=== PATIENT | male | born 1940 | race Caucasian/White ===

== ENCOUNTER → 2017-10-28 | Outpatient (CLI) | payer MEDICARE ==
[2017-10-28 11:06] LABS: BASO % 0.4 % (0.0-1.0); EOS # 0.1 10^3/uL (0.0-0.50); EOS % 1.7 % (0.0-3.0); HEMATOCRIT 31.8 % (42.0-52.0); HEMOGLOBIN 9.7 g/dl (13.5-17.5); IMMATURE GRANULOCYTE % 0.6 % (0-3.0); LYMPH # 1.3 10^3/uL (1.5-4.5); LYMPH % 18.3 % (24.0-44.0); MEAN CORPUSCULAR HEMOGLOBIN 27.7 pg (27.0-33.0); MEAN CORPUSCULAR HGB CONC 30.5 g/dl (32.0-36.5); MEAN CORPUSCULAR VOLUME 90.9 fl (80.0-96.0); MONO # 0.7 10^3/uL (0.0-0.8); MONO % 9.6 % (0.0-5.0); NEUTROPHILS # 4.8 10^3/uL (1.8-7.7); NEUTROPHILS % 69.4 % (36.0-66.0); PLATELET COUNT, AUTOMATED 243 10^3/uL (150-450); RED CELL DISTRIBUTION WIDTH 15.2 % (11.5-14.5); WHITE BLOOD COUNT 6.9 10^3/uL (4.0-10.0)
[2017-10-28 11:42] LABS: ALBUMIN 2.7 GM/DL (3.2-5.2); ALBUMIN/GLOBULIN RATIO 0.77 (1.00-1.93); ALKALINE PHOSPHATASE 182 U/L (45-117); ALT/SGPT 10 U/L (12-78); ANION GAP 1 MEQ/L (8-16); AST/SGOT 16 U/L (7-37); BILIRUBIN,TOTAL 0.8 MG/DL (0.2-1.0); BLOOD UREA NITROGEN 18 MG/DL (7-18); CALCIUM LEVEL 8.3 MG/DL (8.8-10.2); CARBON DIOXIDE LEVEL 35 MEQ/L (21-32); CHLORIDE LEVEL 107 MEQ/L (98-107); CREATININE FOR GFR 0.56 MG/DL (0.70-1.30); FREE T4 0.99 NG/DL (0.76-1.46); GLOMERULAR FILTRATION RATE > 60.0 (>42); GLUCOSE, FASTING 104 MG/DL (70-100); POTASSIUM SERUM 4.3 MEQ/L (3.5-5.1); SODIUM LEVEL 143 MEQ/L (136-145); THYROID STIMULATING HORMONE 0.787 uIU/ML (0.358-3.740); TOTAL PROTEIN 6.2 GM/DL (6.4-8.2)
== END ==
LOC: M LAB 10:27
DX: R19.7 Diarrhea, unspecified (principal)
CPT/HCPCS: 84443

== ENCOUNTER → 2017-11-21 | Outpatient (CLI) | payer MEDICARE ==
[2017-11-21 13:52] LABS: BASO # 0.1 10^3/uL (0.0-0.2); BASO % 1.1 % (0.0-1.0); EOS # 0.1 10^3/uL (0.0-0.50); EOS % 2.5 % (0.0-3.0); HEMATOCRIT 34.2 % (42.0-52.0); HEMOGLOBIN 10.3 g/dl (13.5-17.5); IMMATURE GRANULOCYTE % 0.4 % (0-3.0); LYMPH # 1.2 10^3/uL (1.5-4.5); LYMPH % 21.9 % (24.0-44.0); MEAN CORPUSCULAR HGB CONC 30.1 g/dl (32.0-36.5); MEAN CORPUSCULAR VOLUME 89.5 fl (80.0-96.0); MONO # 0.6 10^3/uL (0.0-0.8); MONO % 11.2 % (0.0-5.0); NEUTROPHILS # 3.3 10^3/uL (1.8-7.7); NEUTROPHILS % 62.9 % (36.0-66.0); PLATELET COUNT, AUTOMATED 241 10^3/uL (150-450); RED BLOOD COUNT 3.82 10^6/uL (4.30-6.10); RED CELL DISTRIBUTION WIDTH 16.4 % (11.5-14.5); WHITE BLOOD COUNT 5.3 10^3/uL (4.0-10.0)
[2017-11-21 14:10] LABS: ALBUMIN 3.1 GM/DL (3.2-5.2); ALBUMIN/GLOBULIN RATIO 0.79 (1.00-1.93); ALKALINE PHOSPHATASE 181 U/L (45-117); ALT/SGPT 7 U/L (12-78); ANION GAP 1 MEQ/L (8-16); AST/SGOT 13 U/L (7-37); BILIRUBIN,TOTAL 1.1 MG/DL (0.2-1.0); BLOOD UREA NITROGEN 20 MG/DL (7-18); CARBON DIOXIDE LEVEL 35 MEQ/L (21-32); CHLORIDE LEVEL 106 MEQ/L (98-107); CREATININE FOR GFR 0.68 MG/DL (0.70-1.30); GLOMERULAR FILTRATION RATE > 60.0 (>42); GLUCOSE, FASTING 93 MG/DL (70-100); POTASSIUM SERUM 4.5 MEQ/L (3.5-5.1); SODIUM LEVEL 142 MEQ/L (136-145)
== END ==
LOC: M LAB 13:07
DX: K59.00 Constipation, unspecified (principal)
CPT/HCPCS: 80053

== ENCOUNTER 2017-12-13 11:40 | Inpatient (IN) | payer MEDICARE ==
[2017-12-13 12:57] LABS: ANION GAP 6 MEQ/L (8-16); BLOOD UREA NITROGEN 21 MG/DL (7-18); CALCIUM LEVEL 9.4 MG/DL (8.8-10.2); CARBON DIOXIDE LEVEL 31 MEQ/L (21-32); CHLORIDE LEVEL 104 MEQ/L (98-107); CREATININE FOR GFR 0.72 MG/DL (0.70-1.30); GLOMERULAR FILTRATION RATE > 60.0 (>42); GLUCOSE, FASTING 98 MG/DL (70-100); POTASSIUM SERUM 4.1 MEQ/L (3.5-5.1); SODIUM LEVEL 141 MEQ/L (136-145)
[2017-12-13] MEDS ORDERED: ISOVUE-370 76% 100ML VIAL (Q9967) As Ordered (13:00)
[2017-12-13 13:02] LABS: BASO # 0.1 10^3/uL (0.0-0.2); EOS # 0.1 10^3/uL (0.0-0.50); EOS % 1.7 % (0.0-3.0); HEMATOCRIT 35.2 % (42.0-52.0); HEMOGLOBIN 10.8 g/dl (13.5-17.5); IMMATURE GRANULOCYTE % 0.2 % (0-3.0); LYMPH # 1.2 10^3/uL (1.5-4.5); LYMPH % 23.3 % (24.0-44.0); MEAN CORPUSCULAR HEMOGLOBIN 26.6 pg (27.0-33.0); MEAN CORPUSCULAR HGB CONC 30.7 g/dl (32.0-36.5); MEAN CORPUSCULAR VOLUME 86.7 fl (80.0-96.0); MONO # 0.6 10^3/uL (0.0-0.8); MONO % 11.5 % (0.0-5.0); NEUTROPHILS # 3.2 10^3/uL (1.8-7.7); NEUTROPHILS % 62.3 % (36.0-66.0); PLATELET COUNT, AUTOMATED 211 10^3/uL (150-450); RED BLOOD COUNT 4.06 10^6/uL (4.30-6.10); RED CELL DISTRIBUTION WIDTH 16.8 % (11.5-14.5); WHITE BLOOD COUNT 5.2 10^3/uL (4.0-10.0)
[2017-12-13 13:10] LABS: INR 1.04; PROTHROMBIN TIME 13.7 SECONDS (12.1-14.4)
[2017-12-13 13:11] LABS: PARTIAL THROMBOPLASTIN TIME 38.2 SECONDS (25.4-37.6)
[2017-12-13] MEDS: NS 1,000 ML IV (17:20)
[2017-12-13] MEDS: FERROUS SULFATE 325MG TAB PO (21:36)
[2017-12-13] MEDS: SINEMET 25-100 MG TAB PO (21:37)
[2017-12-13] MEDS: FUROSEMIDE 20 MG TAB PO (21:37)
[2017-12-13] MEDS: TERAZOSIN 1 MG CAP PO (21:37)
[2017-12-13] MEDS: MIRTAZAPINE 15 MG TAB PO (21:37)
[2017-12-14] MEDS: ACETAMINOPHEN TAB 650MG DOSE (2X325MG) PO (00:05)
[2017-12-14] MEDS: NS 1,000 ML IV ×2 (05:31→15:09)
[2017-12-14 06:08] LABS: BASO # 0.1 10^3/uL (0.0-0.2); BASO % 1.1 % (0.0-1.0); EOS # 0.2 10^3/uL (0.0-0.50); HEMATOCRIT 34.4 % (42.0-52.0); HEMOGLOBIN 10.5 g/dl (13.5-17.5); IMMATURE GRANULOCYTE % 0.2 % (0-3.0); LYMPH # 1.5 10^3/uL (1.5-4.5); MEAN CORPUSCULAR HEMOGLOBIN 26.5 pg (27.0-33.0); MEAN CORPUSCULAR HGB CONC 30.5 g/dl (32.0-36.5); MEAN CORPUSCULAR VOLUME 86.9 fl (80.0-96.0); MONO # 0.6 10^3/uL (0.0-0.8); MONO % 10.8 % (0.0-5.0); NEUTROPHILS # 3.1 10^3/uL (1.8-7.7); NEUTROPHILS % 56.9 % (36.0-66.0); PLATELET COUNT, AUTOMATED 179 10^3/uL (150-450); RED BLOOD COUNT 3.96 10^6/uL (4.30-6.10); RED CELL DISTRIBUTION WIDTH 16.8 % (11.5-14.5); WHITE BLOOD COUNT 5.4 10^3/uL (4.0-10.0)
[2017-12-14 06:33] LABS: ALBUMIN/GLOBULIN RATIO 0.83 (1.00-1.93); ALKALINE PHOSPHATASE 162 U/L (45-117); ALT/SGPT 9 U/L (12-78); ANION GAP 10 MEQ/L (8-16); AST/SGOT 15 U/L (7-37); BLOOD UREA NITROGEN 18 MG/DL (7-18); CALCIUM LEVEL 8.5 MG/DL (8.8-10.2); CARBON DIOXIDE LEVEL 29 MEQ/L (21-32); CHLORIDE LEVEL 107 MEQ/L (98-107); CREATININE FOR GFR 0.69 MG/DL (0.70-1.30); GLOMERULAR FILTRATION RATE > 60.0 (>42); GLUCOSE, FASTING 55 MG/DL (70-100); POTASSIUM SERUM 3.6 MEQ/L (3.5-5.1); SODIUM LEVEL 146 MEQ/L (136-145); TOTAL PROTEIN 6.6 GM/DL (6.4-8.2)
[2017-12-14] MEDS: METOPROLOL SUCC (TopROL XL) 100MG *XL* TAB PO (08:33)
[2017-12-14] MEDS: SINEMET 25-100 MG TAB PO ×4 (08:33→20:29)
[2017-12-14] MEDS: FERROUS SULFATE 325MG TAB PO ×2 (08:33→20:30)
[2017-12-14] MEDS: sulfaSALAzine 500 MG TABEC PO (08:33)
[2017-12-14] MEDS: OMEPRAZOLE 20 MG CAP PO (08:33)
[2017-12-14] MEDS: MIRALAX *UNIT DOSE* 17GM PACKET PO (08:34)
[2017-12-14] MEDS: FUROSEMIDE 20 MG TAB PO (08:35)
[2017-12-14] MEDS: TERAZOSIN 1 MG CAP PO (20:29)
[2017-12-14] MEDS: MIRTAZAPINE 15 MG TAB PO (20:30)
[2017-12-15] MEDS: NS 1,000 ML IV ×2 (03:35→16:22)
[2017-12-15] MEDS: METOPROLOL SUCC (TopROL XL) 100MG *XL* TAB PO (08:51)
[2017-12-15] MEDS: sulfaSALAzine 500 MG TABEC PO (08:51)
[2017-12-15] MEDS: OMEPRAZOLE 20 MG CAP PO (08:51)
[2017-12-15] MEDS: MIRALAX *UNIT DOSE* 17GM PACKET PO (08:51)
[2017-12-15] MEDS: FERROUS SULFATE 325MG TAB PO ×2 (08:51→20:46)
[2017-12-15] MEDS: SINEMET 25-100 MG TAB PO ×4 (08:51→20:46)
[2017-12-15] MEDS: GLYCOPYRROLATE 2 MG PO ×2 (12:04→20:49)
[2017-12-15] MEDS: MIRTAZAPINE 15 MG TAB PO (20:48)
[2017-12-15] MEDS: TERAZOSIN 1 MG CAP PO (20:48)
[2017-12-16] MEDS: NS 1,000 ML IV (04:54)
[2017-12-16] MEDS: ceFAZolin SOD 1 GM in D5W MINI-BAG PLUS 50 ML IV (06:16)
[2017-12-16] MEDS ORDERED: LIDOCAINE 2% MDV 20 ML VIAL As Ordered (07:04)
[2017-12-16] MEDS ORDERED: PROPOFOL 200 MG/20 ML VIAL As Ordered (07:04)
[2017-12-16] MEDS: METOPROLOL SUCC (TopROL XL) 100MG *XL* TAB PO (09:00)
[2017-12-16 09:14] LABS: HEMOGLOBIN 10.5 g/dl (13.5-17.5); MEAN CORPUSCULAR HEMOGLOBIN 26.9 pg (27.0-33.0); MEAN CORPUSCULAR VOLUME 89.7 fl (80.0-96.0); PLATELET COUNT, AUTOMATED 181 10^3/uL (150-450); RED CELL DISTRIBUTION WIDTH 17.1 % (11.5-14.5); WHITE BLOOD COUNT 5.2 10^3/uL (4.0-10.0)
[2017-12-16] MEDS: GLYCOPYRROLATE 2 MG PO ×2 (09:49→20:31)
[2017-12-16] MEDS: sulfaSALAzine 500 MG TABEC PO (09:49)
[2017-12-16] MEDS: FERROUS SULFATE 325MG TAB PO ×2 (09:49→20:30)
[2017-12-16] MEDS: OMEPRAZOLE 20 MG CAP PO (09:49)
[2017-12-16] MEDS: SINEMET 25-100 MG TAB PO ×4 (09:49→20:30)
[2017-12-16] MEDS: MIRALAX *UNIT DOSE* 17GM PACKET PO (09:49)
[2017-12-16 10:11] LABS: ANION GAP 13 MEQ/L (8-16); BLOOD UREA NITROGEN 17 MG/DL (7-18); CALCIUM LEVEL 7.9 MG/DL (8.8-10.2); CARBON DIOXIDE LEVEL 21 MEQ/L (21-32); CHLORIDE LEVEL 113 MEQ/L (98-107); CREATININE FOR GFR 0.67 MG/DL (0.70-1.30); GLOMERULAR FILTRATION RATE > 60.0 (>42); GLUCOSE, FASTING 50 MG/DL (70-100); POTASSIUM SERUM 4.1 MEQ/L (3.5-5.1); SODIUM LEVEL 147 MEQ/L (136-145)
[2017-12-16] MEDS: ACETAMINOPHEN TAB 650MG DOSE (2X325MG) PO ×2 (14:12→20:31)
[2017-12-16] MEDS: TERAZOSIN 1 MG CAP PO (20:30)
[2017-12-16] MEDS: MIRTAZAPINE 15 MG TAB PO (20:30)
[2017-12-17 08:45] LABS: HEMOGLOBIN 10.2 g/dl (13.5-17.5); MEAN CORPUSCULAR HEMOGLOBIN 26.8 pg (27.0-33.0); MEAN CORPUSCULAR HGB CONC 30.9 g/dl (32.0-36.5); MEAN CORPUSCULAR VOLUME 86.8 fl (80.0-96.0); PLATELET COUNT, AUTOMATED 166 10^3/uL (150-450); RED CELL DISTRIBUTION WIDTH 17.3 % (11.5-14.5); WHITE BLOOD COUNT 6.9 10^3/uL (4.0-10.0)
[2017-12-17 09:01] LABS: ANION GAP 6 MEQ/L (8-16); BLOOD UREA NITROGEN 19 MG/DL (7-18); CALCIUM LEVEL 8.3 MG/DL (8.8-10.2); CARBON DIOXIDE LEVEL 29 MEQ/L (21-32); CHLORIDE LEVEL 113 MEQ/L (98-107); CREATININE FOR GFR 0.77 MG/DL (0.70-1.30); GLOMERULAR FILTRATION RATE > 60.0 (>42); GLUCOSE, FASTING 115 MG/DL (70-100); SODIUM LEVEL 148 MEQ/L (136-145)
[2017-12-17] MEDS: MIRALAX *UNIT DOSE* 17GM PACKET PO (09:56)
[2017-12-17] MEDS: OMEPRAZOLE 20 MG CAP PO (09:56)
[2017-12-17] MEDS: SINEMET 25-100 MG TAB PO ×2 (09:56→13:22)
[2017-12-17] MEDS: FERROUS SULFATE 325MG TAB PO (09:56)
[2017-12-17] MEDS: GLYCOPYRROLATE 2 MG PO (09:56)
[2017-12-17] MEDS: sulfaSALAzine 500 MG TABEC PO (09:56)
[2017-12-17] MEDS: METOPROLOL SUCC (TopROL XL) 100MG *XL* TAB PO (09:57)
== END 2017-12-17 14:23 | disposition home or self-care (01) | DRG 394 ==
LOC: M ED 11:40 → M ED INP 15:25 → M MSPAV 17:15
PROC: 0DH64UZ Insertion of Feeding Device into Stomach, Percutaneous Endoscopic Approach (ICD-10-PCS; principal; 2017-12-16 08:19)
PROC: 0DB98ZX Excision of Duodenum, Via Natural or Artificial Opening Endoscopic, Diagnostic (ICD-10-PCS; 2017-12-16 08:19)
DX: K94.23 Gastrostomy malfunction (principal); E46 Unspecified protein-calorie malnutrition; G20 Parkinson's disease; K21.9 Gastro-esophageal reflux disease without esophagitis; N40.0 Benign prostatic hyperplasia without lower urinary tract symptoms; K94.22 Gastrostomy infection; D50.9 Iron deficiency anemia, unspecified; I25.10 Atherosclerotic heart disease of native coronary artery without angina pectoris; I50.9 Heart failure, unspecified; G47.00 Insomnia, unspecified; R47.02 Dysphasia; Z79.899 Other long term (current) drug therapy; Z88.8 Allergy status to other drugs, medicaments and biological substances; Z88.5 Allergy status to narcotic agent; Z88.2 Allergy status to sulfonamides; I25.2 Old myocardial infarction; N28.1 Cyst of kidney, acquired; I48.91 Unspecified atrial fibrillation; Z88.6 Allergy status to analgesic agent; Z87.891 Personal history of nicotine dependence; Z95.0 Presence of cardiac pacemaker; M19.90 Unspecified osteoarthritis, unspecified site; L40.8 Other psoriasis; E11.9 Type 2 diabetes mellitus without complications; I11.0 Hypertensive heart disease with heart failure

== ENCOUNTER 2018-11-22 08:12 | Inpatient (IN) | payer MEDICARE ==
[~2018-11-22] VITALS: Ht 172.7 cm; Wt 70.5 kg
[~2018-11-22 08:12] MED LIST: ACITRETIN; BABY81CH; CARB25TA9 PO; FERR325T3 PO; FLOM0.4C39; FURO20TA2 PO; GLYC2TAB18 PO; IBUP400T; KEFL250C11 PO; LISI10TA4; MELOPOW; METO1TAB33 PO; MIRA3350 PO; MIRT1TAB15 PO; OMEP20TA9 PO; ROSI4TA; SULF500T2 PO; TERA2CAP3 PO; ZOCO80TA
[2018-11-22] MEDS ORDERED: ENOXAPARIN 40 MG/0.4 ML SYRINGE (J1650) SC SCH (09:00)
[2018-11-22] MEDS ORDERED: DOCUSATE SODIUM 100 MG CAP PO SCH (09:00)
[2018-11-22 10:10] VITALS: BP 139/68
[2018-11-22] MEDS ORDERED: MOM 30ML SUSPENSION UDC PO PRN (11:15)
[2018-11-22] MEDS ORDERED: IPRATROPIUM 0.5MG/ALBUTEROL 2.5MG INH SOL UD 3ML (DUONEB)(J7620) NEB PRN (11:15)
[2018-11-22] MEDS ORDERED: MAALOX 30 ML SUSP *UDC PO PRN (11:15)
[2018-11-22] MEDS ORDERED: VANCOMYCIN HCL 500 MG in D5W MINI-BAG PLUS 100 ML IV SCH (11:15)
[2018-11-22] MEDS ORDERED: ACETAMINOPHEN TAB 650MG DOSE (2X325MG) PO PRN (11:15)
--- NOTE | 2018-11-22 11:27 | HPEPDOC ---
General Date of Admission Nov 22, 2018 at 10:02 Date of Service: Nov 22, 2018 Attending Physician: RENAN BROOKS MD Chief Complaint The patient is a 78-year-old male admitted with a reason for visit of Pneumonia, Hypoxia. Source: Family Exam Limitations: Physical impairment Timing/Duration: 24 hours Severity: Severe Associated Symptoms: Unobtainable History of Present Illness 78 years old white male with past medical history of multiple medical problems was transferred from [facility] with chief complaint of congestion and increasing shortness of breath since yesterday. Still was obtained from patient's , as he is unable to give me history. Secondary to physical disability and her respiratory distress. As per patient's , patient was in his usual state of health when he developed increasing shortness of breath with gurgling since yesterday. No chest pain, no nausea, vomiting. No any other associated problems not resolving with any medication. Opposition no radiation or associated symptoms. Patient is being admitted with the acute respiratory failure secondary to hypoxia secondary to pneumonia, most likely community-acquired pneumonia and difficulty ambulation. Home Medications Scheduled Carbidopa/Levodopa (Carbidopa-Levodopa 25-100 Tab) 1 Tab Tab, 2 TAB PO QID, (Reported) Ceftriaxone Sodium (Ceftriaxone) 1 Gm Vial, 1 GM IV ASDIRECTED, (Reported) RECEIVED AT [facility] Furosemide (Furosemide) 10 Mg/1 Ml Vial, 20 MG IV ASDIRECTED, (Reported) RECEIVED AT [facility] Metoprolol Tartrate (Metoprolol Tartrate) 50 Mg Tablet, 50 MG PO BID, (Reported) Mirtazapine (Mirtazapine) 30 Mg Tab.rapdis, 30 MG PO QHS, (Reported) Piperacillin Sodium/Tazobactam (Zosyn 3.375 Gram Vial) 3.375 Gm Vial, 1 INJ IV ASDIRECTED, (Reported) RECEIVED AT [facility] Rivaroxaban (Xarelto) 15 Mg Tablet, 15 MG PO QHS, (Reported) PATIENT HAS BEEN OUT FOR A FEW DAYS DUE TO ISSUES TRANSFERRING PRESCRIPTIONS FROM PHARMACY IN [place] Vancomycin/0.9 % Sod Chloride (Vancomycin 1 G/100Ml-0.9% NaCl) 1 Gm/100 Ml Plast..bag, 1 GM IV ASDIRECTED, (Reported) RECEIVED AT [facility] Scheduled PRN Furosemide (Lasix) 40 Mg Tablet, 40 MG PO DAILY PRN for SWELLING, (Reported) Sulfasalazine (Sulfasalazine) 500 Mg Tab, 500 MG PO BID PRN for COLITIS, (Reported) Allergies Coded Allergies: hydroxychloroquine (Verified Allergy, Unknown, RASH/CEDILLO/DIZZINESS, 11/22/18) iodine (Verified Allergy, Unknown, RASH, 11/22/18) Sulfa (Sulfonamide Antibiotics) (Verified Adverse Reaction, Unknown, N/V, 11/22/18) acetaminophen (Verified Adverse Reaction, Unknown, NERVOUSNESS WITH PERCOCET, 11/22/18) oxycodone (Verified Adverse Reaction, Unknown, NERVOUSNESS WITH PERCOCET, 11/22/18) Past Medical History Medical History GERD, difficulty swallowing, status post PEG, diverticulitis, and Parkinson's disease, myocardial infarction, pacemaker placement, herniated, colitis, cardiac catheterization, cholecystectomy, estimated will: Resection, hernia repair, knee prosthesis, PPM placement Surgical History As per medical history Family History Significant Family History: No pertinent family hx Social History * Smoker: former Smoker Alcohol: Denies Drugs: denies A-FIB/CHADSVASC A-FIB History Current/History of A-Fib/PAF?: No Review of Systems Constitutional: Reports: Other (unable to obtained review of systems secondary to patient's respiratory status) Physical Examination General Exam: Positive: Cooperative, Moderate Distress, Other (, anxious) Eye Exam: Positive: PERRLA, Conjunctiva & lids normal ENT Exam: Positive: Atraumatic, Mucous membr. moist/pink Neck Exam: Positive: Supple Chest Exam: Positive: Rales, Rhonchi Heart Exam: Positive: Rate Normal, Tachycardic, Normal S1, Normal S2 Abdomen Exam: Positive: Normal bowel sounds, Soft Extremity Exam: Positive: Normal pulses Skin Exam: Positive: Nl turgor and temperature Neuro Exam: Positive: Other (unable to doExam) Psych Exam: Positive: Other (is able to perform psych exam) Vital Signs Vital Signs Date Time Temp Pulse Resp B/P (MAP) Pulse Ox O2 Delivery O2 Flow Rate FiO2 11/22/18 10:10 98.0 61 20 139/68 (91) 89 10.0 Problems (1) Acute respiratory failure with hypoxia Status: Acute (2) Pneumonia Status: Acute Problem Text: above Plan / VTE VTE Prophylaxis Ordered?: Yes Plan Plan Admit patient to PCU with telemetry Guest discussed with patient's at bedside. Advance care planning was discussed DNR/DNI was discussed and patient's who is her healthcare proxy signed the DNR, DNI and molst form Saline lock Zosyn 4.5 gm IV every 6 hours Vanco 500 mg IV every 12 hours DuoNeb every 4 hours and every 2 hours when necessary Tylenol, Maalox, Mylanta when necessary We will continue home meds, once they are confirmed Continue G-tube feeding as per home Bed rest DVT prophylaxis with Lovenox Poor prognosis, will speak with family regarding comfort care once her daughter gets here today. RENAN BROOKS MD Nov 22, 2018 11:27
[2018-11-22 12:00] VITALS: BP 143/63
[2018-11-22] MEDS ORDERED: IPRATROPIUM 0.5MG/ALBUTEROL 2.5MG INH SOL UD 3ML (DUONEB)(J7620) NEB SCH (12:00)
[2018-11-22] MEDS ORDERED: PIPERACILLIN/TAZOBACTAM SOD 2.25 GM in D5W MINI-BAG PLUS 50 ML IV SCH (12:00)
[2018-11-22 12:11] LABS: HEMOGLOBIN 12.2 g/dl (13.5-17.5); MEAN CORPUSCULAR HEMOGLOBIN 31.1 pg (27.0-33.0); MEAN CORPUSCULAR HGB CONC 30.5 g/dl (32.0-36.5); PLATELET COUNT, AUTOMATED 174 10^3/uL (150-450); RED BLOOD COUNT 3.92 10^6/uL (4.30-6.10); WHITE BLOOD COUNT 8.6 10^3/uL (4.0-10.0)
[2018-11-22] MEDS ORDERED: FURO20VL IV (12:13)
[2018-11-22] MEDS ORDERED: ZOSY3INJ2 IV (12:13)
[2018-11-22] MEDS ORDERED: METO50TA7 PO (12:13)
[2018-11-22] MEDS ORDERED: LASI40TA9 PO (12:13)
[2018-11-22] MEDS ORDERED: XARE15TA PO (12:13)
[2018-11-22] MEDS ORDERED: MIRT1TAB16 PO (12:13)
[2018-11-22] MEDS ORDERED: CEFT1INJ5 IV (12:13)
[2018-11-22] MEDS ORDERED: VANC1PLA IV (12:13)
[2018-11-22] MEDS ORDERED: ALPRAZolam 0.25 MG TAB PO PRN (12:15)
[2018-11-22 12:34] LABS: ALT/SGPT 54 U/L (12-78); BILIRUBIN,TOTAL 2.3 MG/DL (0.2-1.0); BLOOD UREA NITROGEN 17 MG/DL (7-18); CALCIUM LEVEL 8.5 MG/DL (8.8-10.2); CARBON DIOXIDE LEVEL 35 MEQ/L (21-32); CHLORIDE LEVEL 100 MEQ/L (98-107); CREATININE FOR GFR 0.64 MG/DL (0.70-1.30); GLOMERULAR FILTRATION RATE > 60.0 (>42); GLUCOSE, FASTING 105 MG/DL (70-100); SODIUM LEVEL 140 MEQ/L (136-145); TOTAL PROTEIN 7.8 GM/DL (6.4-8.2)
--- NOTE | 2018-11-22 12:42 | REP ---
Chest one-view HISTORY: Pneumonia Comparison: 12/14/2017 Parenchymal densities are present in the lower lobes and right upper lobe consistent with bilateral infiltrates. There is blunting of the right costophrenic angle due to a small pleural effusion. The heart is normal in size. The pulmonary vasculature is normal in appearance. A cardiac pacemaker is present. Impression: Bilateral lower lobe and right upper lobe infiltrates. Electronically Signed by Hari Perdue MD 11/22/2018 12:33 P
[2018-11-22] MEDS ORDERED: SLF 3 ML SYR IV PRN (14:15)
[2018-11-22] MEDS ORDERED: VANCOMYCIN HCL 1,000 MG, VIAL MATE ADAPTER 1 EACH in D5W 250 ML IV SCH (15:00)
--- NOTE | 2018-11-22 15:54 | DS.PDOC ---
Discharge Summary General Date of Admission Nov 22, 2018 at 10:02 Date of Discharge 11/22/2018 Attending Physician: RENAN BROOKS MD Discharge Summary PROCEDURES PERFORMED DURING STAY: None. ADMITTING DIAGNOSES: 1. Pneumonia. DISCHARGE DIAGNOSES: 1. Pneumonia, acute respiratory failure secondary to hypoxia secondary to pneumonia. COMPLICATIONS/CHIEF COMPLAINT: Pneumonia, Hypoxia. HISTORY OF PRESENT ILLNESS: 78 years old white male with past medical history of multiple medical problems was transferred from [facility] with chief complaint of congestion and increasing shortness of breath since yesterday. Still was obtained from patient's , as he is unable to give me history. Secondary to physical disability and her respiratory distress. As per patient's , patient was in his usual state of health when he developed increasing shortness of breath with gurgling since yesterday. No chest pain, no nausea, vomiting. No any other associated problems not resolving with any medication. Opposition no radiation or associated symptoms. Patient is being admitted with the acute respiratory failure secondary to hypoxia secondary to pneumonia, most likely community-acquired pneumonia and difficulty ambulation.. HOSPITAL COURSE: Patient was admitted with the diagnosis of pneumonia, started was started on Zosyn and vancomycin, patient was in the poor state of health and very poor prognosis, most form was obtained. He was made DNR/DNI patient peacefully on 1440 hrs. today. DISCHARGE MEDICATIONS: Please see below. ALLERGIES: Please see below. PHYSICAL EXAMINATION ON DISCHARGE: VITAL SIGNS: Please see below. GENERAL: Physical exam not performed as patient HEENT: NECK: CARDIOVASCULAR EXAMINATION: RESPIRATORY EXAMINATION: ABDOMINAL EXAMINATION: EXTREMITIES: SKIN: NEUROLOGICAL EXAMINATION: PSYCHIATRIC EXAMINATION: LABORATORY DATA: Please see below. IMAGING: C chest x-ray report and a CT of the chest report from [facility] PROGNOSIS: ACTIVITY: . DIET: ] DISCHARGE PLAN: ] DISPOSITION: . DISCHARGE INSTRUCTIONS: 1. None. ITEMS TO FOLLOWUP ON ON OUTPATIENT: 1. None. DISCHARGE CONDITION: . TIME SPENT ON DISCHARGE: 1. 25 minutes. Vital Signs/I&Os Vital Signs Date Time Temp Pulse Resp B/P (MAP) Pulse Ox O2 Delivery O2 Flow Rate FiO2 11/22/18 12:00 98.0 63 20 143/63 (89) 90 10.0 Laboratory Data Labs 24H Laboratory Tests 2 11/22/18 11:46: Nucleated Red Blood Cells % (auto) 0.0, Anion Gap 5L, Glomerular Filtration Rate > 60.0, Blood Urea Nitrogen 17, Creatinine 0.64L, Sodium Level 140, Potassium Level 4.0, Chloride Level 100, Carbon Dioxide Level 35H, Calcium Level 8.5L, Aspartate Amino Transf (AST/SGOT) 37, Alanine Aminotransferase (ALT/SGPT) 54, Alkaline Phosphatase 206H, Total Bilirubin 2.3H, Total Protein 7.8, Albumin 3.0L, Albumin/Globulin Ratio 0.63L CBC/BMP Laboratory Tests 11/22/18 11:46 Red Blood Count 3.92 L, Mean Corpuscular Volume 102.0 H, Mean Corpuscular Hemoglobin 31.1, Mean Corpuscular Hemoglobin Concent 30.5 L, Red Cell Distribution Width 14.5, Calcium Level 8.5 L, Aspartate Amino Transf (AST/SGOT) 37, Alanine Aminotransferase (ALT/SGPT) 54, Alkaline Phosphatase 206 H, Total Bilirubin 2.3 H, Total Protein 7.8, Albumin 3.0 L Microbiology Microbiology 11/22/18 Blood Culture, Received Pending Discharge Medications Scheduled Carbidopa/Levodopa (Carbidopa-Levodopa 25-100 Tab) 1 Tab Tab, 2 TAB PO QID, (Reported) Ceftriaxone Sodium (Ceftriaxone) 1 Gm Vial, 1 GM IV ASDIRECTED, (Reported) RECEIVED AT [facility] Furosemide (Furosemide) 10 Mg/1 Ml Vial, 20 MG IV ASDIRECTED, (Reported) RECEIVED AT [facility] Metoprolol Tartrate (Metoprolol Tartrate) 50 Mg Tablet, 50 MG PO BID, (Reported) Mirtazapine (Mirtazapine) 30 Mg Tab.rapdis, 30 MG PO QHS, (Reported) Piperacillin Sodium/Tazobactam (Zosyn 3.375 Gram Vial) 3.375 Gm Vial, 1 INJ IV ASDIRECTED, (Reported) RECEIVED AT [facility] Rivaroxaban (Xarelto) 15 Mg Tablet, 15 MG PO QHS, (Reported) PATIENT HAS BEEN OUT FOR A FEW DAYS DUE TO ISSUES TRANSFERRING PRESCRIPTIONS FROM PHARMACY IN [place] Vancomycin/0.9 % Sod Chloride (Vancomycin 1 G/100Ml-0.9% NaCl) 1 Gm/100 Ml Plast..bag, 1 GM IV ASDIRECTED, (Reported) RECEIVED AT [facility] Scheduled PRN Furosemide (Lasix) 40 Mg Tablet, 40 MG PO DAILY PRN for SWELLING, (Reported) Sulfasalazine (Sulfasalazine) 500 Mg Tab, 500 MG PO BID PRN for COLITIS, (Reported) Allergies Coded Allergies: hydroxychloroquine (Verified Allergy, Unknown, RASH/CEDILLO/DIZZINESS, 11/22/18) iodine (Verified Allergy, Unknown, RASH, 11/22/18) Sulfa (Sulfonamide Antibiotics) (Verified Adverse Reaction, Unknown, N/V, 11/22/18) acetaminophen (Verified Adverse Reaction, Unknown, NERVOUSNESS WITH PERCOCET, 11/22/18) oxycodone (Verified Adverse Reaction, Unknown, NERVOUSNESS WITH PERCOCET, 11/22/18) RENAN BROOKS MD Nov 22, 2018 15:54
[2018-11-22] MEDS ORDERED: PIPERACILLIN/TAZOBACTAM SOD 4.5 GM in D5W MINI-BAG PLUS 50 ML IV SCH (16:00)
[2018-11-22] MEDS ORDERED: SLF 3 ML SYR IV SCH (22:00)
== END 2018-11-22 16:29 | disposition expired | DRG 193 ==
LOC: M PCU 10:02
PROVIDERS: ADMIT Internal Medicine; ATTEND Internal Medicine
DX: J18.9 Pneumonia, unspecified organism (principal); J96.01 Acute respiratory failure with hypoxia; K57.32 Diverticulitis of large intestine without perforation or abscess without bleeding; K21.9 Gastro-esophageal reflux disease without esophagitis; R13.10 Dysphagia, unspecified; G20 Parkinson's disease; I25.2 Old myocardial infarction; Z79.899 Other long term (current) drug therapy; Z88.2 Allergy status to sulfonamides; Z88.5 Allergy status to narcotic agent; Z88.8 Allergy status to other drugs, medicaments and biological substances; Z95.0 Presence of cardiac pacemaker; Z95.2 Presence of prosthetic heart valve; Z87.891 Personal history of nicotine dependence; Z66 Do not resuscitate